=== PATIENT | male | born 1930 | race Caucasian/White ===

== ENCOUNTER 2020-12-09 15:25 | Emergency (ER) | payer MEDICARE, BC ==
[~2020-12-09] VITALS: Ht 193 cm; Wt 88.6 kg
[2020-12-09 16:11] LABS: BASOPHILS % (AUTO) 0.3 % (0-1); EOSINOPHILS % (AUTO) 0.2 % (0-6); HEMATOCRIT 38.1 % (42.0-52.0); HEMOGLOBIN 13.1 g/dl (14.0-17.9); LYMPHOCYTES # (AUTO) 1.3 X10'3 (1.1-4.8); LYMPHOCYTES % (AUTO) 13.1 % (21-51); MEAN CORPUSCULAR HEMOGLOBIN 30.7 PG (27.0-31.0); MEAN CORPUSCULAR HGB CONC 34.4 g/dL (33.0-36.5); MEAN CORPUSCULAR VOLUME 89.3 FL (78-98); MEAN PLATELET VOLUME 8.1 FL (7.4-10.4); MONOCYTES # (AUTO) 0.6 X10'3 (0-0.9); MONOCYTES % (AUTO) 6.1 % (2-12); NEUTROPHILS # (AUTO) 7.7 X10'3 (1.8-7.7); NEUTROPHILS % (AUTO) 80.3 % (42-75); PLATELET COUNT 241 X10'3 (140-440); RED BLOOD COUNT 4.27 X10'6 (4.70-6.10); RED CELL DISTRIBUTION WIDTH 13.4 % (11.5-14.5); WHITE BLOOD COUNT 9.5 X10'3 (4.5-11.0)
[2020-12-09 16:21] LABS: ALANINE AMINOTRANSFERASE 18 U/L (12-78); ALBUMIN 3.5 G/DL (3.4-5.0); ALKALINE PHOSPHATASE 54 IU/L (46-116); ANION GAP 13 (8-16); ASPARTATE AMINO TRANSFERASE 15 U/L (10-37); BILIRUBIN,TOTAL 0.5 MG/DL (0.1-1.0); BLOOD UREA NITROGEN 25 MG/DL (7-18); BUN/CREATININE RATIO 21.4 (5.4-32.0); CALCIUM 8.7 MG/DL (8.5-10.1); CHLORIDE 101 MMOL/L (99-107); CREATININE 1.17 MG/DL (0.60-1.10); GLUCOSE 98 MG/DL (70-104); POTASSIUM 3.6 MMOL/L (3.5-5.1); SODIUM 136 MMOL/L (135-145); TOTAL CARBON DIOXIDE 22.3 MMOL/L (24-32); eGFR 59 ML/MIN
[2020-12-09] MEDS ORDERED: hydrOXYzine 25 MG tablet PO ONE (16:35)
[2020-12-09 16:43] VITALS: BP 133/66
== END 2020-12-09 17:03 | disposition home or self-care (01) ==
LOC: ER 15:26
DX: I10 Essential (primary) hypertension (principal); R42 Dizziness and giddiness; E86.0 Dehydration
CPT/HCPCS: 36415; 71045; 80053; 84484; 85025; 93005; 99285; Q0177

== ENCOUNTER 2020-12-14 17:32 | Emergency (ER) | payer MEDICARE, BC ==
[~2020-12-14] VITALS: Ht 193 cm; Wt 88.6 kg
[2020-12-14] MEDS ORDERED: normal saline 1000ml 1,000 ML IV ONE (18:50)
[2020-12-14] MEDS ORDERED: LORazepam 2 mg/ml vial IV ONE (18:50)
[2020-12-14 19:29] LABS: BASOPHILS % (AUTO) 0.3 % (0-1); EOSINOPHILS # (AUTO) 0.1 X10'3 (0-0.9); EOSINOPHILS % (AUTO) 0.6 % (0-6); HEMATOCRIT 39.1 % (42.0-52.0); HEMOGLOBIN 13.7 g/dl (14.0-17.9); LYMPHOCYTES # (AUTO) 1.1 X10'3 (1.1-4.8); LYMPHOCYTES % (AUTO) 12.1 % (21-51); MEAN CORPUSCULAR HEMOGLOBIN 30.8 PG (27.0-31.0); MEAN PLATELET VOLUME 8.2 FL (7.4-10.4); MONOCYTES # (AUTO) 0.9 X10'3 (0-0.9); MONOCYTES % (AUTO) 9.7 % (2-12); NEUTROPHILS # (AUTO) 7.1 X10'3 (1.8-7.7); NEUTROPHILS % (AUTO) 77.3 % (42-75); PLATELET COUNT 251 X10'3 (140-440); RED BLOOD COUNT 4.44 X10'6 (4.70-6.10); RED CELL DISTRIBUTION WIDTH 12.8 % (11.5-14.5); WHITE BLOOD COUNT 9.2 X10'3 (4.5-11.0)
[2020-12-14 19:43] LABS: ALANINE AMINOTRANSFERASE 21 U/L (12-78); ALBUMIN 3.5 G/DL (3.4-5.0); ALKALINE PHOSPHATASE 48 IU/L (46-116); ANION GAP 7 (8-16); ASPARTATE AMINO TRANSFERASE 11 U/L (10-37); BILIRUBIN,TOTAL 0.6 MG/DL (0.1-1.0); BLOOD UREA NITROGEN 17 MG/DL (7-18); BUN/CREATININE RATIO 15.2 (5.4-32.0); CHLORIDE 98 MMOL/L (99-107); CREATININE 1.12 MG/DL (0.60-1.10); GLUCOSE 96 MG/DL (70-104); POTASSIUM 3.4 MMOL/L (3.5-5.1); SODIUM 132 MMOL/L (135-145); TOTAL CARBON DIOXIDE 26.8 MMOL/L (24-32); eGFR 62 ML/MIN
[2020-12-14] MEDS ORDERED: potassium Cl 20 mEq SR tablet PO ONE (19:50)
[2020-12-14 20:25] VITALS: BP 157/76
== END 2020-12-14 20:26 | disposition home or self-care (01) ==
LOC: ER 17:33
DX: E86.0 Dehydration (principal); R42 Dizziness and giddiness; E87.6 Hypokalemia; I10 Essential (primary) hypertension
CPT/HCPCS: 36415; 80053; 85025; 96361; 96374; 99283; J2060; J7030; 96360

== ENCOUNTER 2020-12-18 16:21 | Emergency (ER) | payer MEDICARE, BC ==
[~2020-12-18] VITALS: Ht 193 cm; Wt 88.6 kg
[2020-12-18 16:46] VITALS: BP 152/71
[2020-12-18] MEDS ORDERED: LORazepam 1 MG tablet PO ONE (19:15)
[2020-12-18 19:40] LABS: CLARITY,URINE CLEAR (Clear); COLOR,URINE YELLOW (Yellow); GLUCOSE, URINE NEGATIVE (Neg); KETONES,URINE NEGATIVE (Neg); LEUKOCYTE ESTERASE ,URINE NEGATIVE (Neg); NITRITES, URINE NEGATIVE (Neg); OCCULT BLOOD,URINE NEGATIVE (Neg); PROTEIN,URINE NEGATIVE (Neg); UROBILINOGEN,URINE 0.2 E.U/dL (0.2-1.0)
[2020-12-18 19:43] LABS: BASOPHILS # (AUTO) 0.1 X10'3 (0-0.2); BASOPHILS % (AUTO) 0.5 % (0-1); EOSINOPHILS # (AUTO) 0.1 X10'3 (0-0.9); HEMATOCRIT 43.8 % (42.0-52.0); HEMOGLOBIN 14.7 g/dl (14.0-17.9); LYMPHOCYTES # (AUTO) 1.8 X10'3 (1.1-4.8); LYMPHOCYTES % (AUTO) 14.6 % (21-51); MEAN CORPUSCULAR HEMOGLOBIN 30.3 PG (27.0-31.0); MEAN CORPUSCULAR HGB CONC 33.5 g/dL (33.0-36.5); MEAN CORPUSCULAR VOLUME 90.4 FL (78-98); MONOCYTES # (AUTO) 1.2 X10'3 (0-0.9); MONOCYTES % (AUTO) 9.8 % (2-12); NEUTROPHILS # (AUTO) 9.1 X10'3 (1.8-7.7); NEUTROPHILS % (AUTO) 74.1 % (42-75); PLATELET COUNT 294 X10'3 (140-440); RED BLOOD COUNT 4.85 X10'6 (4.70-6.10); RED CELL DISTRIBUTION WIDTH 13.2 % (11.5-14.5); WHITE BLOOD COUNT 12.3 X10'3 (4.5-11.0)
[2020-12-18 19:48] LABS: UA COLLECTION TYPE CLN CATCH MIDSTREAM
[2020-12-18 19:59] LABS: ALANINE AMINOTRANSFERASE 22 U/L (12-78); ALBUMIN 3.7 G/DL (3.4-5.0); ALKALINE PHOSPHATASE 52 IU/L (46-116); ANION GAP 13 (8-16); ASPARTATE AMINO TRANSFERASE 16 U/L (10-37); BILIRUBIN,TOTAL 0.5 MG/DL (0.1-1.0); BLOOD UREA NITROGEN 19 MG/DL (7-18); BUN/CREATININE RATIO 17.4 (5.4-32.0); CALCIUM 8.9 MG/DL (8.5-10.1); CHLORIDE 102 MMOL/L (99-107); CREATININE 1.09 MG/DL (0.60-1.10); GLUCOSE 89 MG/DL (70-104); POTASSIUM 3.9 MMOL/L (3.5-5.1); SODIUM 140 MMOL/L (135-145); TOTAL CARBON DIOXIDE 24.9 MMOL/L (24-32); TOTAL PROTEIN 7.4 G/DL (6.4-8.2); eGFR 64 ML/MIN
[2020-12-18] MEDS ORDERED: LORA-269 PO (20:15)
== END 2020-12-18 20:36 | disposition home or self-care (01) ==
LOC: ER 16:23
DX: F41.9 Anxiety disorder, unspecified (principal); E86.0 Dehydration; R45.0 Nervousness; R42 Dizziness and giddiness; I10 Essential (primary) hypertension; Z79.899 Other long term (current) drug therapy
CPT/HCPCS: 36415; 80053; 81003; 85025; 99283

== ENCOUNTER 2021-08-05 08:44 | Inpatient (IN) | payer MEDICARE, BC ==
[~2021-08-05] VITALS: Ht 193 cm; Wt 82.3 kg
[~2021-08-05 08:44] MED LIST: LORA-269 PO
[2021-08-05 10:23] LABS: ALANINE AMINOTRANSFERASE 16 U/L (12-78); ALBUMIN 2.6 G/DL (3.4-5.0); ALBUMIN/GLOBULIN RATIO 0.6 (1.1-1.5); ALKALINE PHOSPHATASE 45 IU/L (46-116); ANION GAP 6 (8-16); ASPARTATE AMINO TRANSFERASE 8 U/L (10-37); BILIRUBIN,TOTAL 0.4 MG/DL (0.1-1.0); BLOOD UREA NITROGEN 20 MG/DL (7-18); BUN/CREATININE RATIO 20.2 (5.4-32.0); C-REACTIVE PROTEIN 14.72 MG/DL (0.0-0.5); CALCIUM 8.3 MG/DL (8.5-10.1); CHLORIDE 100 MMOL/L (99-107); CREATININE 0.99 MG/DL (0.60-1.10); GLUCOSE 94 MG/DL (70-104); POTASSIUM 3.5 MMOL/L (3.5-5.1); SODIUM 132 MMOL/L (135-145); TOTAL PROTEIN 6.8 G/DL (6.4-8.2); eGFR 71 ML/MIN
[2021-08-05 10:33] LABS: BASOPHILS % (AUTO) 0.3 % (0-1); EOSINOPHILS % (AUTO) 0.2 % (0-6); HEMATOCRIT 34.7 % (42.0-52.0); HEMOGLOBIN 11.5 g/dl (14.0-17.9); LYMPHOCYTES # (AUTO) 0.5 X10'3 (1.1-4.8); MEAN CORPUSCULAR HEMOGLOBIN 28.7 PG (27.0-31.0); MEAN CORPUSCULAR HGB CONC 33.2 g/dL (33.0-36.5); MEAN CORPUSCULAR VOLUME 86.5 FL (78-98); MONOCYTES # (AUTO) 1.1 X10'3 (0-0.9); MONOCYTES % (AUTO) 10.1 % (2-12); NEUTROPHILS # (AUTO) 8.8 X10'3 (1.8-7.7); NEUTROPHILS % (AUTO) 84.4 % (42-75); RED BLOOD COUNT 4.01 X10'6 (4.70-6.10); RED CELL DISTRIBUTION WIDTH 13.9 % (11.5-14.5); WHITE BLOOD COUNT 10.4 X10'3 (4.5-11.0)
[2021-08-05 10:40] LABS: PLATELET COUNT 8 X10'3 (140-440)
[2021-08-05 12:30] LABS: CLARITY,URINE CLEAR (Clear); COLOR,URINE YELLOW (Yellow); GLUCOSE, URINE NEGATIVE (Neg); KETONES,URINE NEGATIVE (Neg); LEUKOCYTE ESTERASE ,URINE NEGATIVE (Neg); NITRITES, URINE NEGATIVE (Neg); OCCULT BLOOD,URINE LARGE (Neg); PROTEIN,URINE NEGATIVE (Neg); UROBILINOGEN,URINE 0.2 E.U/dL (0.2-1.0)
[2021-08-05 12:37] LABS: UA COLLECTION TYPE URINAL
[2021-08-05 12:38] LABS: WBC,URINE 0-4 /HPF (0-4)
[2021-08-05 12:39] LABS: BACTERIA,URINE NONE SEEN /HPF (Neg); MUCUS STRANDS NONE SEEN /LPF (Neg); RBC,URINE TNTC /HPF (0-2); SQUAMOUS EPITHELIAL CELL,UR FEW /LPF (FEW)
[2021-08-05] MEDS ORDERED: piperacillin/tazo 3.375gm/50ml 50 ML IV ONE (13:35)
[2021-08-05 14:44] LABS: BASOPHILS % (AUTO) 0.4 % (0-1); EOSINOPHILS % (AUTO) 0.4 % (0-6); HEMATOCRIT 34.8 % (42.0-52.0); HEMOGLOBIN 11.4 g/dl (14.0-17.9); LYMPHOCYTES # (AUTO) 0.7 X10'3 (1.1-4.8); LYMPHOCYTES % (AUTO) 6.4 % (21-51); MEAN CORPUSCULAR HEMOGLOBIN 28.3 PG (27.0-31.0); MEAN CORPUSCULAR HGB CONC 32.8 g/dL (33.0-36.5); MEAN CORPUSCULAR VOLUME 86.4 FL (78-98); MEAN PLATELET VOLUME 8.8 FL (7.4-10.4); MONOCYTES # (AUTO) 1.1 X10'3 (0-0.9); MONOCYTES % (AUTO) 9.4 % (2-12); NEUTROPHILS # (AUTO) 9.3 X10'3 (1.8-7.7); NEUTROPHILS % (AUTO) 83.4 % (42-75); RED BLOOD COUNT 4.03 X10'6 (4.70-6.10); RED CELL DISTRIBUTION WIDTH 13.6 % (11.5-14.5); WHITE BLOOD COUNT 11.2 X10'3 (4.5-11.0)
[2021-08-05] MEDS ORDERED: FLO0.4C PO (14:50)
[2021-08-05] MEDS ORDERED: LORA-268 PO (14:50)
[2021-08-05] MEDS ORDERED: LISI1TAB53 PO (14:50)
[2021-08-05] MEDS ORDERED: LINE600T14 PO (14:50)
[2021-08-05 14:51] LABS: PLATELET COUNT 16 X10'3 (140-440)
[2021-08-05] MEDS ORDERED: DOXY25TA58 PO (14:51)
[2021-08-05] MEDS ORDERED: ASPI-611 PO (14:51)
[2021-08-05 15:19] LABS: ACANTHOCYTES FEW; BURR CELLS 1+; ELLIPTOCYTES FEW; PLATELET ESTIMATE DECREASED
[2021-08-05] MEDS ORDERED: vancomycin/NS 1 GM ADD-VANTAGE 250 ML IV ONE (17:00)
[2021-08-05] MEDS ORDERED: LORazepam 0.5 MG tablet PO PRN (17:00)
[2021-08-05] MEDS ORDERED: non-formulary drug (Doxylamine Succinate (Unisom) 1 TAB) PO PRN (17:00)
[2021-08-05 18:15] VITALS: BP 161/77
[2021-08-05] MEDS ORDERED: bisacodyl 10mg suppository rectal RC PRN (18:25)
[2021-08-05] MEDS ORDERED: potassium CL 10mEq/100ml bag 100 ML IV PRN (18:25)
[2021-08-05] MEDS ORDERED: acetaminophen 325mg tablet PO PRN ×2 (18:25)
[2021-08-05] MEDS ORDERED: magnesium 4gm in 100ml NS 100 ML IV PRN (18:25)
[2021-08-05] MEDS ORDERED: HYDROcodone/acetaminophen 5mg/325mg tablet PO PRN (18:25)
[2021-08-05] MEDS ORDERED: HYDROcodone/acetaminophen 10/325mg tab PO PRN (18:25)
[2021-08-05] MEDS ORDERED: ondansetron/PF 4mg/2ml inj IV PRN (18:25)
[2021-08-05] MEDS ORDERED: mag hydrox/Alum hydrox/simeth 30ml oral suspension PO PRN (18:25)
[2021-08-05] MEDS ORDERED: magnesium hydroxide 30ml (MOM) UD suspension PO PRN (18:25)
[2021-08-05] MEDS ORDERED: magnesium Cl slow-release 64mg tablet PO PRN (18:25)
[2021-08-05] MEDS ORDERED: morphine 2 MG/ML inj. syringe IV PRN ×2 (18:25)
[2021-08-05] MEDS ORDERED: magnesium 2GM in 50ml NS 50 ML IV PRN (18:25)
[2021-08-05] MEDS ORDERED: diphenhydrAMINE 25mg capsule PO PRN (18:25)
[2021-08-05] MEDS ORDERED: acetaminophen 650mg rectal suppository RC PRN (18:25)
[2021-08-05] MEDS ORDERED: potassium Cl 20 mEq SR tablet PO PRN ×2 (18:25)
[2021-08-05 18:30] VITALS: BP 139/87
[2021-08-05] MEDS: K and/or MAG REPLACEMENT MC SCH (20:00)
[2021-08-05 20:46] VITALS: BP 142/71
[2021-08-05 21:39] LABS: BASOPHILS % (AUTO) 0.5 % (0-1); EOSINOPHILS # (AUTO) 0.2 X10'3 (0-0.9); EOSINOPHILS % (AUTO) 1.7 % (0-6); HEMATOCRIT 34.1 % (42.0-52.0); HEMOGLOBIN 11.4 g/dl (14.0-17.9); LYMPHOCYTES # (AUTO) 0.8 X10'3 (1.1-4.8); LYMPHOCYTES % (AUTO) 8.4 % (21-51); MEAN CORPUSCULAR HEMOGLOBIN 28.8 PG (27.0-31.0); MEAN CORPUSCULAR HGB CONC 33.6 g/dL (33.0-36.5); MEAN CORPUSCULAR VOLUME 85.9 FL (78-98); MEAN PLATELET VOLUME 6.4 FL (7.4-10.4); MONOCYTES # (AUTO) 1.1 X10'3 (0-0.9); MONOCYTES % (AUTO) 11.2 % (2-12); NEUTROPHILS # (AUTO) 7.7 X10'3 (1.8-7.7); NEUTROPHILS % (AUTO) 78.2 % (42-75); RED BLOOD COUNT 3.97 X10'6 (4.70-6.10); WHITE BLOOD COUNT 9.8 X10'3 (4.5-11.0)
[2021-08-05 21:48] LABS: PLATELET COUNT 38 X10'3 (140-440)
[2021-08-05 22:10] VITALS: BP 146/73
[2021-08-05 22:25] VITALS: BP 160/69
[2021-08-05 23:35] VITALS: BP 165/77
--- NOTE | 2021-08-05 23:35 | NUR ---
The patient, EMILE LIM, 89 y/o, M admitted by SARTHAK MCGILL MD, was given written information regarding hospital policies, unit procedures and contact persons. See Admission information.
[2021-08-05] MEDS: docusate sod 100mg capsule PO SCH (23:58)
[2021-08-06] VITALS (31 sets, daily range): BP systolic 112–178; BP diastolic 52–85
--- NOTE | 2021-08-06 00:59 | NUR ---
CALL PLACED TO BLOOD BANK AGAIN FOR PLATELETS BAG. ACCORDING TO AMBAR FROM BLOOD BANK, THERE IS NO A+ PLATELET BAG AT THIS TIME. BUT THERE'S A SHIPMENT ON THE WAY FROM [place]. THE LAST THREE UNITS GIVEN HAS BEEN A+, IT WOULD BE IDEAL TO WAIT FOR ANOTHER UNIT A+ PLATELET BAG. WILL TRANSFUSE SOON BAG IS READY. PATIENT IS NO APPARENT DISTRESS. DENIES ANY DISCOMFORT OR PAIN. PATIENT IS READY TO BE TRANSFUSED. NEW IV INSERTED. PUMP, NS AND BLOOD TUBING AT BEDSIDE. ALL NEEDS AT THIS TIME. WILL CONTINUE MONITOR.
--- NOTE | 2021-08-06 05:25 | NUR ---
platelet transfusion stated at transfusion started at 0506. patient is in no apparent distress denies any symptoms chills fever, tachycardia or tachycardia. All safety in place. Will continue to monitor.
--- NOTE | 2021-08-06 06:19 | NUR ---
PATIENT IN NO APPARENT DISTRESS. Problems reprioritized. Patient report given, questions answered & plan of care reviewed with LYDIA Akers.
[2021-08-06 06:41] LABS: BASOPHILS # (AUTO) 0.1 X10'3 (0-0.2); BASOPHILS % (AUTO) 0.6 % (0-1); EOSINOPHILS # (AUTO) 0.2 X10'3 (0-0.9); EOSINOPHILS % (AUTO) 1.8 % (0-6); HEMATOCRIT 29.4 % (42.0-52.0); HEMOGLOBIN 10.1 g/dl (14.0-17.9); LYMPHOCYTES # (AUTO) 0.6 X10'3 (1.1-4.8); LYMPHOCYTES % (AUTO) 6.8 % (21-51); MEAN CORPUSCULAR HEMOGLOBIN 29.2 PG (27.0-31.0); MEAN CORPUSCULAR HGB CONC 34.4 g/dL (33.0-36.5); MEAN PLATELET VOLUME 8.4 FL (7.4-10.4); MONOCYTES % (AUTO) 10.8 % (2-12); NEUTROPHILS # (AUTO) 7.1 X10'3 (1.8-7.7); RED BLOOD COUNT 3.46 X10'6 (4.70-6.10); RED CELL DISTRIBUTION WIDTH 13.6 % (11.5-14.5); WHITE BLOOD COUNT 8.8 X10'3 (4.5-11.0)
[2021-08-06 06:47] LABS: PLATELET COUNT 44 X10'3 (140-440)
--- NOTE | 2021-08-06 07:12 | NUR ---
Page to Dr. Maciel Message: [id number] Noman Johnson- Platelet 44. Transfused 4 units total. Delphine [id number]
[2021-08-06 07:31] LABS: ALANINE AMINOTRANSFERASE 17 U/L (12-78); ALBUMIN 2.3 G/DL (3.4-5.0); ALBUMIN/GLOBULIN RATIO 0.6 (1.1-1.5); ALKALINE PHOSPHATASE 41 IU/L (46-116); ANION GAP 9 (8-16); ASPARTATE AMINO TRANSFERASE 10 U/L (10-37); BILIRUBIN,TOTAL 0.4 MG/DL (0.1-1.0); BLOOD UREA NITROGEN 16 MG/DL (7-18); CALCIUM 8.2 MG/DL (8.5-10.1); CHLORIDE 105 MMOL/L (99-107); CHOL/HDL RATIO 2.9 (0.00-4.99); CHOLESTEROL 114 MG/DL (0-200); GLUCOSE 87 MG/DL (70-104); HDL CHOLESTEROL 39 MG/DL (35-60); LDL CHOLESTEROL 65 MG/DL (50-100); MAGNESIUM 1.9 MG/DL (1.5-2.4); PHOSPHORUS 2.8 MG/DL (2.3-4.5); POTASSIUM 3.6 MMOL/L (3.5-5.1); SODIUM 137 MMOL/L (135-145); TOTAL CARBON DIOXIDE 22.6 MMOL/L (24-32); TOTAL PROTEIN 6.2 G/DL (6.4-8.2); TRIGLYCERIDES 43 MG/DL (20-135); eGFR > 90 ML/MIN
[2021-08-06] MEDS: VANCOMYCIN 1GM/200ML IVPB 200 ML IV SCH ×2 (07:34→20:10)
[2021-08-06] MEDS: normal saline 1000ml 1,000 ML IV SCH ×3 (07:36→21:05)
--- NOTE | 2021-08-06 07:57 | NUR ---
Page to Dr. Maciel Message: [id number] Noman Johnson- Do you want to transfuse another unit of platelets? Delphine [id number]
[2021-08-06] MEDS: HYDROchlorothiazide 25mg tablet PO SCH (08:00)
[2021-08-06] MEDS ORDERED: aspirin 81mg, enteric-coated 1 TAB TABLET.DR PO SCH (08:00)
[2021-08-06] MEDS: K and/or MAG REPLACEMENT MC SCH ×2 (08:00→20:00)
[2021-08-06] MEDS: lisinopril 20mg tablet PO SCH (08:00)
[2021-08-06] MEDS: tamsulosin 0.4mg capsule PO SCH (08:00)
[2021-08-06] MEDS: docusate sod 100mg capsule PO SCH ×2 (08:00→20:10)
--- NOTE | 2021-08-06 08:08 | NUR ---
Dr. Maciel states to given another unit of platelets
[2021-08-06 09:52] LABS: BASOPHILS % (AUTO) 0.4 % (0-1); EOSINOPHILS # (AUTO) 0.1 X10'3 (0-0.9); EOSINOPHILS % (AUTO) 1.4 % (0-6); HEMATOCRIT 30.5 % (42.0-52.0); HEMOGLOBIN 10.2 g/dl (14.0-17.9); LYMPHOCYTES # (AUTO) 0.7 X10'3 (1.1-4.8); LYMPHOCYTES % (AUTO) 7.6 % (21-51); MEAN CORPUSCULAR HEMOGLOBIN 28.8 PG (27.0-31.0); MEAN CORPUSCULAR HGB CONC 33.5 g/dL (33.0-36.5); MEAN PLATELET VOLUME 8.7 FL (7.4-10.4); MONOCYTES # (AUTO) 0.9 X10'3 (0-0.9); MONOCYTES % (AUTO) 9.7 % (2-12); NEUTROPHILS # (AUTO) 7.2 X10'3 (1.8-7.7); NEUTROPHILS % (AUTO) 80.9 % (42-75); RED BLOOD COUNT 3.55 X10'6 (4.70-6.10); RED CELL DISTRIBUTION WIDTH 13.5 % (11.5-14.5); WHITE BLOOD COUNT 8.9 X10'3 (4.5-11.0)
[2021-08-06 10:10] LABS: PLATELET COUNT 42 X10'3 (140-440)
[2021-08-06] MEDS: piperacillin/tazo 3.375gm/50ml 50 ML IV SCH ×3 (11:06→16:00)
--- NOTE | 2021-08-06 12:20 | NUR ---
Age Screen: Pt admit DX R foot infection and thrombocytopenia per EMR. Pt has no edema, reports no wt loss/decreased intake per RN Malnutrition Screen, and pending physical assessment as well as PO trends of heart healthy diet this admit. Will monitor for nutrition intervention needs this admit. Addendum: 08/06/21 at [address] Amended: Links added.
--- NOTE | 2021-08-06 13:38 | NUR ---
Page to Dr. Maciel Message: [id number] Noman Johnson- Want a repeat platelet lab draw? Surgery around 1700. Delphine [id number] Dr. Maciel called back stating no need for re-check. OK to go surgery.
[2021-08-06] MEDS ORDERED: BUPIVAcaine 0.5% inj/PF 30 ML ONE (15:39)
[2021-08-06] MEDS ORDERED: ondansetron/PF 4mg/2ml inj IV PRN ×2 (16:20→17:35)
[2021-08-06] MEDS ORDERED: morphine 2 MG/ML inj. syringe IV PRN (16:20)
[2021-08-06] MEDS ORDERED: meperidine/PF 25mg/ml syringe IV PRN ×3 (16:20)
[2021-08-06] MEDS ORDERED: proCHLORperazine 10 MG/2 ml inj IV PRN (16:20)
[2021-08-06] MEDS ORDERED: ringers solution, lacted 1,000 ML IV SCH (16:20)
[2021-08-06] MEDS ORDERED: morphine 4 MG/ML inj SYRINge IV PRN (16:20)
[2021-08-06] MEDS ORDERED: midazolam 1 mg/ML 2ml injection ONE (16:24)
[2021-08-06] MEDS ORDERED: FENTANYL CITRATE/PF 50 MCG/1 ML VIAL ONE (16:24)
--- NOTE | 2021-08-06 16:27 | NUR ---
Page to Dr. Maciel Message: [id number] Noman Johnson- please call regarding Code status. Delphine [phone]
[2021-08-06] MEDS ORDERED: propofol inj 20 ML IV ONE (16:28)
[2021-08-06] MEDS ORDERED: BUPIVAcaine 0.5% inj/PF 30 ml vial IJ ONE (17:00)
--- NOTE | 2021-08-06 17:31 | NUR ---
Received from OR via [facility]OSP[facility]ED , accompanied by Anesthesiologist DR RICKS and report given by Anesthesiolgist. PATIENT IS ON MASK WITH 10 LITERS GAUAGE LEFT HAND, VSS, BANDAGE ON RIGHT FOOT WRAPPED WITH AGE BANDAGE. Addendum: 08/06/21 at 1746 by Melly Rice RN Amended: Links added.
[2021-08-06] MEDS ORDERED: bisacodyl 10mg suppository rectal RC PRN (17:35)
[2021-08-06] MEDS ORDERED: magnesium hydroxide 30ml (MOM) UD suspension PO PRN (17:35)
[2021-08-06] MEDS ORDERED: HYDROcodone/acetaminophen 10/325mg tab PO PRN (17:35)
[2021-08-06] MEDS ORDERED: acetaminophen 325mg tablet PO PRN (17:35)
[2021-08-06] MEDS ORDERED: hydrALAZINE 20mg/ml inj. IV PRN (18:15)
--- NOTE | 2021-08-06 18:27 | NUR ---
Problems reprioritized. Patient report given, questions answered & plan of care reviewed with Bethanie FREEMAN.
--- NOTE | 2021-08-06 19:01 | NUR ---
CALLED REPORT TO [employer], ANSWERED ALL HER QUESTIONS. PATIENT'S VSS AND MEETS DISCHARGE CRITERIA Addendum: 08/06/21 at 1908 by Melly Rcie RN Amended: Links added.
[2021-08-06] MEDS: potassium cl 20mEq in 1/2 NS 1,000 ML IV SCH (20:09)
[2021-08-06] MEDS: heparin, porcine 5000 units/ml vial SQ SCH (20:11)
[2021-08-06] MEDS ORDERED: sennosides 8.6mg tablet PO SCH (21:00)
[2021-08-07] MEDS: piperacillin/tazo 3.375gm/50ml 50 ML IV SCH ×2 (00:54→08:05)
[2021-08-07] MEDS: potassium cl 20mEq in 1/2 NS 1,000 ML IV SCH (01:35)
[2021-08-07 02:02] VITALS: BP 107/56
[2021-08-07] MEDS ORDERED: VANCOMYCIN LEVEL IV ONE (05:30)
[2021-08-07 06:00] VITALS: BP 158/74
[2021-08-07 06:31] LABS: BASOPHILS % (AUTO) 0.1 % (0-1); EOSINOPHILS % (AUTO) 0 % (0-6); HEMATOCRIT 33.9 % (42.0-52.0); HEMOGLOBIN 11.3 g/dl (14.0-17.9); LYMPHOCYTES # (AUTO) 0.5 X10'3 (1.1-4.8); LYMPHOCYTES % (AUTO) 6.2 % (21-51); MEAN CORPUSCULAR HEMOGLOBIN 28.6 PG (27.0-31.0); MEAN CORPUSCULAR HGB CONC 33.3 g/dL (33.0-36.5); MEAN CORPUSCULAR VOLUME 85.7 FL (78-98); MEAN PLATELET VOLUME 9.3 FL (7.4-10.4); MONOCYTES # (AUTO) 0.5 X10'3 (0-0.9); MONOCYTES % (AUTO) 6.3 % (2-12); NEUTROPHILS # (AUTO) 7.2 X10'3 (1.8-7.7); NEUTROPHILS % (AUTO) 87.4 % (42-75); RED BLOOD COUNT 3.96 X10'6 (4.70-6.10); RED CELL DISTRIBUTION WIDTH 13.7 % (11.5-14.5); WHITE BLOOD COUNT 8.2 X10'3 (4.5-11.0)
--- NOTE | 2021-08-07 06:41 | NUR ---
Problems reprioritized. Patient report given, questions answered & plan of care reviewed with NIKITA FREEMAN.
[2021-08-07 06:46] LABS: ALANINE AMINOTRANSFERASE 18 U/L (12-78); ALBUMIN 2.4 G/DL (3.4-5.0); ALBUMIN/GLOBULIN RATIO 0.6 (1.1-1.5); ALKALINE PHOSPHATASE 44 IU/L (46-116); ANION GAP 9 (8-16); ASPARTATE AMINO TRANSFERASE 14 U/L (10-37); BILIRUBIN,TOTAL 0.4 MG/DL (0.1-1.0); BLOOD UREA NITROGEN 18 MG/DL (7-18); BUN/CREATININE RATIO 21.4 (5.4-32.0); CALCIUM 8.5 MG/DL (8.5-10.1); CHLORIDE 103 MMOL/L (99-107); CREATININE 0.84 MG/DL (0.60-1.10); GLUCOSE 103 MG/DL (70-104); PHOSPHORUS 3.3 MG/DL (2.3-4.5); SODIUM 135 MMOL/L (135-145); TOTAL CARBON DIOXIDE 23.5 MMOL/L (24-32); TOTAL PROTEIN 6.5 G/DL (6.4-8.2); VANCOMYCIN,TROUGH 14.1 UG/ML (6.0-14.0); eGFR 86 ML/MIN
[2021-08-07 06:47] LABS: PLATELET COUNT 39 X10'3 (140-440)
--- NOTE | 2021-08-07 07:07 | NUR ---
Page to Dr. Maciel Message: [id number] Noman Johnson- Platelet 39. Delphine [phone]
[2021-08-07] MEDS: docusate sod 100mg capsule PO SCH (08:00)
[2021-08-07] MEDS: HYDROchlorothiazide 25mg tablet PO SCH (08:00)
[2021-08-07] MEDS: K and/or MAG REPLACEMENT MC SCH (08:00)
[2021-08-07] MEDS: heparin, porcine 5000 units/ml vial SQ SCH (08:00)
[2021-08-07] MEDS: tamsulosin 0.4mg capsule PO SCH (08:00)
[2021-08-07] MEDS: lisinopril 20mg tablet PO SCH (08:00)
[2021-08-07] MEDS ORDERED: VANCOmycin 1250MG/NS 250ml Bag 250 ML IV SCH (08:00)
[2021-08-07 09:22] VITALS: BP 154/68
--- NOTE | 2021-08-07 09:22 | NUR ---
Received from OR via [facility] , accompanied by Anesthesiologist DR. MACKEY and report given by Anesthesiolgist. PATIENT PRESENT WITH MASK ON 10 LITERS, VSS, 20 GAUGE IN THE LEFT HAND, BRACE ON LEFT LEG WITH TWO TOE PINS, BLOOD SUGAR 107 LR AT 100ML/HR. PATIENT STATES NO PAIN BUT THRISTY Addendum: 08/07/21 at 0940 by Melly Rice RN Amended: Links added. Addendum: 08/07/21 at 0944 by Melly Rice RN CHARTED ON WRONG PATEINT CHARTED IN ERROR WRONG PATIENT.
[2021-08-07] MEDS ORDERED: PANT40TA54 PO (10:54)
[2021-08-07] MEDS ORDERED: LINE600T12 PO (10:54)
[2021-08-07] MEDS ORDERED: HYDR-3965 PO (10:54)
[2021-08-07 11:00] VITALS: BP 121/58
[2021-08-07] MEDS ORDERED: pneumococcal 23-VAL P-sac vacc 25 mcg/0.5ml vial IMVAC ONE (11:15)
--- NOTE | 2021-08-07 12:30 | NUR ---
Patient stable for discharge. PIV removed x2 with catheter intact. Telemetry removed. Discharge instructions given and patient verbalized understanding. All possessions gathered and sent home with patient. Patient transferred safely via wheelchair to patient's family member's personal vehicle.
[2021-08-08] MEDS ORDERED: VANCOMYCIN LEVEL IV ONE (19:30)
== END 2021-08-07 12:35 | disposition home health service (06) | DRG 474 ==
LOC: ER 08:44 → ED HOLD 18:26 → PCU 3S 23:15
PROVIDERS: ADMIT Family Medicine; ATTEND Family Medicine
PROC: 30233R1 Transfusion of Nonautologous Platelets into Peripheral Vein, Percutaneous Approach (ICD-10-PCS; 2021-08-05)
PROC: 0QBN0ZX Excision of Right Metatarsal, Open Approach, Diagnostic (ICD-10-PCS; 2021-08-06)
PROC: 0Y9M0ZZ Drainage of Right Foot, Open Approach (ICD-10-PCS; 2021-08-06)
PROC: 0Y6M0Z9 Detachment at Right Foot, Partial 1st Ray, Open Approach (ICD-10-PCS; principal; 2021-08-06 16:23)
DX: T87.43 Infection of amputation stump, right lower extremity (principal); A41.9 Sepsis, unspecified organism; L02.611 Cutaneous abscess of right foot; Z20.822 Contact with and (suspected) exposure to COVID-19; D69.6 Thrombocytopenia, unspecified; I10 Essential (primary) hypertension; E11.621 Type 2 diabetes mellitus with foot ulcer; E11.40 Type 2 diabetes mellitus with diabetic neuropathy, unspecified; L97.519 Non-pressure chronic ulcer of other part of right foot with unspecified severity; D75.839 Thrombocytosis, unspecified; N40.0 Benign prostatic hyperplasia without lower urinary tract symptoms; Y83.5 Amputation of limb(s) as the cause of abnormal reaction of the patient, or of later complication, without mention of misadventure at the time of the procedure; Y92.89 Other specified places as the place of occurrence of the external cause; Z79.899 Other long term (current) drug therapy; Z79.82 Long term (current) use of aspirin
CPT/HCPCS: 36415; 36430; 71045; 73630; 73718; 80053; 80061; 80202; 81001; 82948; 83036; 83605; 83735; 84100; 84145; 85008; 85025; 85651; 86140; 86885; 86900; 86901; 87040; 87070; 87075; 87077; 87081; 87186; 87635; 93005; 93306; 93925; 96365; 97161; 97530; 99285; A4215; A4618; A6223; A6253; A6266; A6449; A7000; G0378; J0360; J1644; J2250; J2270; J2543; J2704; J3010; J3370; J3480; J7030; J7120; P9035; S0020

== ENCOUNTER 2021-08-10 14:56 | Emergency (ER) | payer MEDICARE, BC ==
[~2021-08-10] VITALS: Ht 193 cm; Wt 81.8 kg
[~2021-08-10 14:56] MED LIST changes: +FLO0.4C PO; +HYDR-3965 PO; +LINE600T12 PO; +LINE600T14 PO; +LISI1TAB53 PO; +LORA-268 PO; -LORA-269 PO; +PANT40TA54 PO
[2021-08-10 15:03] VITALS: BP 126/81
== END 2021-08-10 16:39 | disposition home or self-care (01) ==
LOC: ER 14:58
DX: M96.830 Postprocedural hemorrhage of a musculoskeletal structure following a musculoskeletal system procedure (principal); G62.9 Polyneuropathy, unspecified; I10 Essential (primary) hypertension; Z89.421 Acquired absence of other right toe(s); Z79.899 Other long term (current) drug therapy
CPT/HCPCS: 88305; 88311; 99282; 99283